=== PATIENT | male | born 1975 | race Caucasian/White ===

== ENCOUNTER 2017-12-20 14:25 | Emergency (ER) | payer BC ==
[2017-12-20] MEDS ORDERED: Ketorolac 60 MG/2 ML SDV IM ONE (14:46)
--- NOTE | 2017-12-20 14:46 | EDM.PDOC ---
ED HPI GENERAL MEDICAL PROBLEM - General Chief Complaint: Abdominal Pain Stated Complaint: LT SIDE HURTS Time Seen by Provider: 12/20/17 14:39 Source of Information: Reports: Patient History Limitations: Reports: No Limitations - History of Present Illness INITIAL COMMENTS - FREE TEXT/NARRATIVE: HISTORY AND PHYSICAL: History of present illness: Patient is a 42-year-old male who presents to the emergency room with complaints of left low rib pain. He states he was playing with his son when he got hit in the left low chest approximately 2 days ago. Complaining of pain which is increased with deep inspiration, coughing or movement. Denies any abdominal pain, nausea, vomiting, diarrhea or constipation. He has been eating and drinking appropriately without difficulty. Review of systems: As per history of present illness and below otherwise all systems reviewed and negative. Past medical history: As per history of present illness and as reviewed below otherwise noncontributory. Surgical history: As per history of present illness and as reviewed below otherwise noncontributory. Social history: No reported history of drug or alcohol abuse. Family history: As per history of present illness and as reviewed below otherwise noncontributory. Physical exam: General: Well-developed and well-nourished 42-year-old male. Alert and oriented. Nontoxic appearing and in no acute distress. HEENT: Atraumatic, normocephalic, pupils equal and reactive bilaterally, negative for conjunctival pallor or scleral icterus, mucous membranes moist, throat clear, neck supple, nontender, trachea midline. No drooling or trismus noted. No meningeal signs Lungs: Clear to auscultation, breath sounds equal bilaterally, chest and her to the left low anterior rib area. Breathes easy and even Heart: S1S2, regular rate and rhythm without overt murmur Abdomen: Soft, nondistended, nontender. Negative for masses or hepatosplenomegaly. Negative for costovertebral tenderness. Pelvis: Stable nontender. Genitourinary: Deferred. Rectal: Deferred. Skin: Intact, warm, dry. No lesions or rashes noted. Extremities: Atraumatic, negative for cords or calf pain. Neurovascular unremarkable. Neuro: Awake, alert, oriented. Cranial nerves II through XII unremarkable. Cerebellum unremarkable. Motor and sensory unremarkable throughout. Exam nonfocal. Notes: Xray is unremarkable, no pneumothorax or fractures. Supportive care measures were reviewed and discussed. Patient voices understanding and is agreeable to plan of care. He denies any further questions or concerns at this time. Diagnostics: Chest x-ray with rib detail Therapeutics: Toradol Prescription: Tramadol PRN (#20) Impression: Contusion Plan: 1. Rest and ice the affected area. 2. Tylenol and/or ibuprofen as needed for pain. Tramadol for moderate to severe pain. This medication may cause drowsiness a do not take it will driving her needing to be functioning outside of the house. 3. Follow-up with your primary care provider in the next 1-2 days. Return to the ED as needed and as discussed. Definitive disposition and diagnosis as appropriate pending reevaluation and review of above. Left Abdomen Pain Score (Numeric/FACES): 6 - Related Data Allergies Allergy/AdvReac Type Severity Reaction Status Date / Time No Known Allergies Allergy Verified 12/20/17 14:40 Home Meds: Home Meds Insulin Glargine,Hum.Rec.Anlog [Lantus Solostar] 30 units SQ BEDTIME 09/19/14 [ History] Insulin Aspart [NovoLOG] 100 unit SUBCUT TIDAC #0 09/21/14 [Rx] traMADol [Ultram] 50 mg PO Q4H PRN #20 tab 12/20/17 [Rx] Past Medical History - Past Health History Medical/Surgical History: Denies Medical/Surgical History Cardiovascular History: Reports: Heart Murmur Endocrine/Metabolic History: Reports: Diabetes, Type I - Past Surgical History Musculoskeletal Surgical History: Reports: Arthroscopic Knee Social & Family History - Family History Family Medical History: Noncontributory - Tobacco Use Smoking Status *Q: Current Every Day Smoker Years of Tobacco use: 16 Packs/Tins Daily: 1 - Caffeine Use Caffeine Use: Reports: Coffee - Recreational Drug Use Recreational Drug Use: No ED ROS GENERAL - Review of Systems Review Of Systems: ROS reveals no pertinent complaints other than HPI. ED EXAM, GI/ABD - Physical Exam Exam: See Below (See dictation) Course - Vital Signs Last Recorded V/S: Last Vital Signs Temp 98.1 F 12/20/17 14:38 Pulse 95 12/20/17 14:38 Resp 18 12/20/17 14:38 BP 117/68 12/20/17 14:38 Pulse Ox 96 12/20/17 14:38 - Orders/Labs/Meds Orders: Active Orders 24 hr Category Date Time Status Ribs 2V w Chest Lt [CR] Stat Exams 12/20/17 14:46 Taken Meds: Medications Discontinued Medications Generic Name Dose Route Start Last Admin Trade Name Freq PRN Reason Stop Dose Admin Ketorolac Tromethamine 60 mg 12/20/17 14:46 12/20/17 15:35 Toradol IM 12/20/17 14:47 60 mg ONETIME ONE Administration Departure - Departure Time of Disposition: 15:58 Disposition: Home, Self-Care 01 Clinical Impression: Contusion Qualifiers: Encounter type: initial encounter Contusion area: thoracic wall Contusion of thoracic wall detail: front wall of thorax Laterality: left Qualified Code(s): S20.212A - Contusion of left front wall of thorax, initial encounter - Discharge Information Prescriptions: traMADol [Ultram] 50 mg PO Q4H PRN #20 tab PRN Reason: Pain Instructions: Contusion, [id number]-[id number] Referrals: PCP,None [Primary Care Provider] - Forms: ED Department Discharge Additional Instructions: The following information is given to patients seen in the emergency department who are being discharged to home. This information is to outline your options for follow-up care. We provide all patients seen in our emergency department with a follow-up referral. The need for follow-up, as well as the timing and circumstances, are variable depending upon the specifics of your emergency department visit. If you don't have a primary care physician on staff, we will provide you with a referral. We always advise you to contact your personal physician following an emergency department visit to inform them of the circumstance of the visit and for follow-up with them and/or the need for any referrals to a consulting specialist. The emergency department will also refer you to a specialist when appropriate. This referral assures that you have the opportunity for follow-up care with a specialist. All of these measure are taken in an effort to provide you with optimal care, which includes your follow-up. Under all circumstances we always encourage you to contact your private physician who remains a resource for coordinating your care. When calling for follow-up care, please make the office aware that this follow-up is from your recent emergency room visit. If for any reason you are refused follow-up, please contact the [facility] Emergency Department at and asked to speak to the emergency department charge nurse. MARY Judd [facility] [address] [place] [id number] 1. Rest and ice the affected area. 2. Tylenol and/or ibuprofen as needed for pain. Tramadol for moderate to severe pain. This medication may cause drowsiness a do not take it will driving her needing to be functioning outside of the house. 3. Follow-up with your primary care provider in the next 1-2 days. Return to the ED as needed and as discussed. - My Orders Last 24 Hours: My Active Orders 12/20/17 14:46 Ribs 2V w Chest Lt [CR] Stat - Assessment/Plan Last 24 Hours: My Active Orders 12/20/17 14:46 Ribs 2V w Chest Lt [CR] Stat
[2017-12-20 15:34] VITALS: BP 117/68
--- NOTE | 2017-12-22 17:12 | CR ---
EXAM DATE: 12/20/17 PATIENT'S AGE: 42 Patient: SAAD EMERY Facility: [place], [place] Site . Site : 1975 Study: XRay Chest Left Ribs [id number]/[id number] 3:32:31 PM Ordering Physician: Doctor Good Final Report: INDICATION: Punched in lower left rib area. TECHNIQUE: Chest and left ribs 4 views. COMPARISON: None. FINDINGS: Cardiovascular and mediastinum: Heart size and vasculature are normal in caliber and appearance. Mediastinum is within normal limits. Lungs and pleural spaces: Lungs are clear. No sign of infiltrate or mass. No sign of pleural effusion. No pneumothorax. Bones and soft tissues: Detailed oblique images of the left ribs demonstrate no fractures or bone lesions. IMPRESSION: Unremarkable chest and left ribs. Dictated by Javier Moreira MD @ 12/20/2017 4:02:30 PM Dictated by: Javier Moreira MD @ 12/20/2017 16:02:35 (Electronic Signature) Report Signed by Proxy. OTILIO
== END 2017-12-20 16:10 | disposition home or self-care (01) ==
LOC: MW.ED 14:25
DX: S20.212A Contusion of left front wall of thorax, initial encounter (principal); W51.XXXA Accidental striking against or bumped into by another person, initial encounter; E10.9 Type 1 diabetes mellitus without complications; F17.210 Nicotine dependence, cigarettes, uncomplicated
CPT/HCPCS: 71101; 96372; 99283; J1885

== ENCOUNTER 2020-06-13 22:34 | Emergency (ER) | payer BC, OTHER | END 2020-06-13 22:45 | disposition left against medical advice (07) | LOC: MW.ED 22:34 | DX: Z53.21 Procedure and treatment not carried out due to patient leaving prior to being seen by health care provider (principal) ==

== ENCOUNTER 2020-09-13 06:32 | Day surgery (SDC) | payer OTHER ==
[~2020-09-13 06:32] MED LIST: Lactated Ringers 1,000 ML IV SCH
[2020-09-13] MEDS ORDERED: fentaNYL 100 MCG/2 ML SDV ONE (06:46)
[2020-09-13] MEDS ORDERED: Midazolam 1 MG/ML 2 ML SDV ONE (06:46)
[2020-09-13] MEDS ORDERED: Propofol 200 MG/20 ML SDV ONE ×2 (06:46→08:05)
[2020-09-13] MEDS ORDERED: Lidocaine 2% 5 ML SDV ONE (06:48)
--- NOTE | 2020-09-13 07:12 | PCM.PREANE ---
Preanesthetic Assessment - Anesthesia/Transfusion/Family Hx Anesthesia History: Prior Anesthesia Without Reaction Family History of Anesthesia Reaction: No Transfusion History: No Prior Transfusion(s) - Review of Systems General: No Symptoms Pulmonary: No Symptoms Cardiovascular: No Symptoms Gastrointestinal: No Symptoms Neurological: No Symptoms Other: Reports: None - Physical Assessment NPO Status Date: 09/13/20 NPO Status Time: 00:01 Height: 5 ft 11 in Weight: 194 lb ASA Class: 3 Mental Status: Alert & Oriented x3 Airway Class: Mallampati = 2 Dentition: Reports: Normal Dentition, Dentures ROM/Head Extension: Full Lungs: Clear to Auscultation, Normal Respiratory Effort Cardiovascular: Regular Rate, Regular Rhythm - Allergies Allergies/Adverse Reactions: Allergies Allergy/AdvReac Type Severity Reaction Status Date / Time No Known Allergies Allergy Verified 09/13/20 07:09 - Anesthesia Plan Pre-Op Medication Ordered: None - Acknowledgements Anesthesia Type Planned: General Anesthesia Pt an Appropriate Candidate for the Planned Anesthesia: Yes Alternatives and Risks of Anesthesia Discussed w Pt/Guardian: Yes Pt/Guardian Understands and Agrees with Anesthesia Plan: Yes Additional Comments: npo IDDM glu 151 RLS tob quit 2019 etoh daily glass of wine no cv problems par no questions anxiety PreAnesthesia Questionnaire - Past Health History Medical/Surgical History: Denies Medical/Surgical History HEENT History: Reports: Other (See Below) Other HEENT History: uses reading glasses, has upper denture Cardiovascular History: Reports: None Respiratory History: Reports: None Gastrointestinal History: Reports: Hemorrhoids Genitourinary History: Reports: Renal Calculus Other Genitourinary History: hx of passing a kidney stone Musculoskeletal History: Reports: Fracture Other Musculoskeletal History: hx of fx finger and right tibia Neurological History: Reports: Concussion, Neuropathy, Diabetic, Vertigo Psychiatric History: Reports: None Endocrine/Metabolic History: Reports: IDDM Hematologic History: Reports: None Immunologic History: Reports: None Oncologic (Cancer) History: Reports: None Dermatologic History: Reports: None - Past Surgical History Head Surgeries/Procedures: Reports: None HEENT Surgical History: Reports: None Cardiovascular Surgical History: Reports: None Respiratory Surgical History: Reports: None GI Surgical History: Reports: Other (See Below) Other GI Surgeries/Procedures: hemorrhoidectomy Male Surgical History: Reports: None Endocrine Surgical History: Reports: None Neurological Surgical History: Reports: None Musculoskeletal Surgical History: Reports: Other (See Below) Other Musculoskeletal Surgeries/Procedures:: hx of ORIF right tibia- hardware later removed Oncologic Surgical History: Reports: None Dermatological Surgical History: Reports: None - SUBSTANCE USE Tobacco Use Status *Q: Former Tobacco User Tobacco Use Within Last Twelve Months: No Recreational Drug Use History: No - HOME MEDS Home Medications: Home Meds Insulin Glargine,Hum.Rec.Anlog [Lantus Solostar] 40 units SQ BEDTIME 09/19/14 [History] Gabapentin [Neurontin] 1 tab PO BEDTIME 09/07/20 [History] Insulin Regular, Human [NovoLIN R] 5 unit SQ QID 09/07/20 [History] - CURRENT (IN HOUSE) MEDS Current Meds: Current Medications Lactated Ringer's (Ringers, Lactated) 1,000 mls @ 125 mls/hr IV ASDIRECTED [facility] Last Admin: 09/13/20 07:08 Dose: 125 mls/hr Documented by: Discontinued Medications Fentanyl (Fentanyl 100 Mcg/2 Ml Sdv) Confirm Administered Dose 100 mcg .ROUTE .STK-MED ONE Stop: 09/13/20 06:47 Lidocaine (Lidocaine 2% 5 Ml Sdv) Confirm Administered Dose 5 ml .ROUTE .STK-MED ONE Stop: 09/13/20 06:49 Midazolam HCl (Midazolam 1 Mg/Ml 2 Ml Sdv) Confirm Administered Dose 2 mg .ROUTE .STK-MED ONE Stop: 09/13/20 06:47 Propofol (Propofol 200 Mg/20 Ml Sdv) Confirm Administered Dose 200 mg .ROUTE .STK-MED ONE Stop: 09/13/20 06:47
--- NOTE | 2020-09-13 08:27 | PCM.OPNOTE ---
- General Post-Op/Procedure Note Date of Surgery/Procedure: 09/13/20 Operative Procedure(s): colonoscopy Findings: Hemorrhoids dictation number [id number] Pre Op Diagnosis: blood in stool Post-Op Diagnosis: Hemorrhoids Primary Surgeon: Thad Sloan Pathology: none Complications: None Condition: Good
[2020-09-13 08:36] VITALS: BP 103/68; PULSE 75
--- NOTE | 2020-09-13 09:01 | PCM.POSTAN ---
POST ANESTHESIA ASSESSMENT - MENTAL STATUS Mental Status: Alert (NO ANESTHETIC PROBLEMS), Oriented - VITAL SIGNS Vital Signs: Last Vital Signs Temp 97.9 F 09/13/20 07:11 Pulse 75 09/13/20 08:35 Resp 13 09/13/20 08:35 BP 103/68 09/13/20 08:35 Pulse Ox 99 09/13/20 08:35 - RESPIRATORY Respiratory Status: Respiratory Rate WNL, Airway Patent, O2 Saturation Stable - CARDIOVASCULAR CV Status: Pulse Rate WNL, Blood Pressure Stable - GASTROINTESTINAL GI Status: No Symptoms - POST OP HYDRATION Hydration Status: Adequate & Stable
--- NOTE | 2020-09-13 09:02 | PCM48HPAN ---
Post Anesthesia Note - EVALUATION WITHIN 48HRS OF ANESTHETIC Vital Signs in Normal Range: Yes Patient Participated in Evaluation: Yes Respiratory Function Stable: Yes Airway Patent: Yes Cardiovascular Function Stable: Yes Hydration Status Stable: Yes Pain Control Satisfactory: Yes Nausea and Vomiting Control Satisfactory: Yes Mental Status Recovered: Yes Vital Signs: Last Vital Signs Temp 97.9 F 09/13/20 07:11 Pulse 75 09/13/20 08:35 Resp 13 09/13/20 08:35 BP 103/68 09/13/20 08:35 Pulse Ox 99 09/13/20 08:35
--- NOTE | 2020-09-13 18:39 | OR ---
SURGEON: SUZIE RYAN MD DATE OF PROCEDURE: 09/13/2020 PREOPERATIVE DIAGNOSIS: Hemorrhoids. POSTOPERATIVE DIAGNOSIS: Hemorrhoids. PROCEDURE PERFORMED: Colonoscopy. PRIMARY SURGEON: Endoscopist: Suzie Ryan MD ANESTHESIA: With anesthesiology. EXTENT OF COLONOSCOPY: To cecum. BOWEL PREP: Marginal in the cecum and ascending colon. LIMITATIONS: The patient had a marginal bowel prep in the cecum and ascending colon, thus spent quite a bit of time suctioning and irrigating out and missed a very small polyp. REASON FOR PROCEDURE: The patient is a pleasant 44-year-old gentleman. He had a history of thrombosed hemorrhoids in the past. He now has hemorrhoids and would like to have a fix. Patient does have blood in his stool about three times per week. He has never had a colonoscopy before. PROCEDURE IN DETAIL: Physical exam was performed. Major risks and benefits associated with procedure were explained in detail to the patient. The patient verbalized understanding and is in agreement of the same. The patient was connected to the appropriate monitoring devices and IV was started. EKG, pulse oximetry, blood pressure, and capnography were monitored throughout the procedure. Continuous oxygen and sedation were provided by the anesthesiologist. Patient was placed in left lateral decubitus position. Sedation began. After adequate sedation was achieved, a digital rectal exam was performed. No rectal masses or polyps were felt other than hemorrhoids. Now, a well-lubricated Olympus colonoscope was inserted into the rectum and advanced under direct visualization to the cecum. Cecum was identified by both visual and anatomic landmarks. The patient did have a quite a bit of liquid stool in the cecum and in the ascending colon. Thus we spent quite a bit of time suctioning and irrigating this out for a fairly good look at the cecum, ascending colon, although a very small polyp could be missed. The scope was then slowly withdrawn in a somewhat circular fashion looking at the color, texture, anatomy, and integrity of mucosa from the cecum to the anal canal. No polyps were seen. The scope was retroflexed in the rectum. Again, he did have some noninflamed internal hemorrhoids. Scope was completely removed. The procedure was terminated. ENDOSCOPIC DIAGNOSIS: . RECOMMENDATION: Followup colonoscopy within 5 years, sooner if he develops signs and symptoms such as change in bowel habits or blood in stool. The patient will follow up in clinic to go over scheduling for elective hemorrhoidectomy. VALENTINE RAMSAY /[id number]
== END 2020-09-13 09:10 | disposition home or self-care (01) ==
LOC: MW.SDS 06:32
PROVIDERS: ATTEND Surgery
DX: K64.8 Other hemorrhoids (principal); E10.9 Type 1 diabetes mellitus without complications; E78.5 Hyperlipidemia, unspecified; Z87.891 Personal history of nicotine dependence
CPT/HCPCS: 45378; J2250; J2704; J3010; J7120

== ENCOUNTER 2022-10-14 06:53 | Day surgery (SDC) | payer BC ==
[~2022-10-14 06:53] MED LIST changes: +Acetaminophen 1,000 MG in Premix Bag 1 BAG IV SCH; +Albuterol 0.083% 2.5 MG/3 ML Neb Soln NEB PRN; +HYDROmorphone 1 MG/ML Syringe IVPUSH PRN; +Metoclopramide 10 MG/2 ML SDV IVPUSH PRN; +Morphine 2 MG/ML SYRINGE IVPUSH PRN; +Naloxone 0.4 MG/ML SDV IVPUSH PRN; +Ondansetron 4 MG/2 ML SDV IVPUSH PRN; +Pregabalin 75 MG Cap PO SCH; +cefOXitin 2 GM in Sodium Chloride 0.9% 50 ML IV SCH; +droPERidol 5 MG/2 ML SDV IVPUSH PRN; +fentaNYL 50 MCG/ML SDV IVPUSH PRN
[2022-10-14] MEDS ORDERED: Chloroprocaine 10 MG/ML 5 ML Amp ONE (07:33)
[2022-10-14] MEDS ORDERED: Bupivacaine 25%/EPINEPHrine/PF 30 ML ONE (07:36)
[2022-10-14] MEDS ORDERED: Lidocaine 2% 11 ML Jelly Filled Syringe ONE (07:37)
[2022-10-14] MEDS ORDERED: 50% Dextrose in Water 50 ML Syringe ONE (08:00)
[2022-10-14] MEDS ORDERED: propofoL 50 ML ONE ×2 (08:10→08:52)
[2022-10-14] MEDS ORDERED: cefOXitin 1 GM Vial ONE (08:31)
[2022-10-14] MEDS ORDERED: Phenylephrine HCl 0.5 MG/5 ML AMP ONE (08:41)
[2022-10-14 13:46] VITALS: BP 108/64; PULSE 71
== END 2022-10-14 12:08 | disposition home or self-care (01) ==
LOC: MW.SDS 06:53
PROVIDERS: ATTEND Surgery
DX: K64.8 Other hemorrhoids (principal); K64.4 Residual hemorrhoidal skin tags; F41.9 Anxiety disorder, unspecified; E78.5 Hyperlipidemia, unspecified; E10.40 Type 1 diabetes mellitus with diabetic neuropathy, unspecified; G25.81 Restless legs syndrome; Z79.4 Long term (current) use of insulin; Z79.899 Other long term (current) drug therapy; Z87.891 Personal history of nicotine dependence
CPT/HCPCS: 46260; A9270; J0694; J2370; J2401; J2704; J7120; 00902; J3490

== ENCOUNTER 2024-02-26 13:21 | Emergency (ER) | payer BC ==
[2024-02-26 14:09] LABS: BASOPHILS ABSOLUTE AUTO 0.04 K/uL (0.00-0.20); BASOPHILS PERCENT AUTO 0.5 % (0.0-1.0); EOSINOPHILS ABSOLUTE AUTO 0.09 K/uL (0.00-0.45); EOSINOPHILS PERCENT AUTO 1.1 % (0.0-6.0); HEMATOCRIT 47.3 % (42.0-52.0); HEMOGLOBIN 16.5 g/dL (14.0-18.0); IMMATURE GRAN ABSOLUTE AUTO 0.04 K/uL (0.00-0.05); IMMATURE GRAN PERCENT AUTO 0.5 % (0.0-0.4); LYMPHOCYTES ABSOLUTE AUTO 1.84 K/uL (1.00-4.80); MEAN CORPUSCULAR HEMOGLOBIN 30.6 pg (28.0-32.0); MEAN CORPUSCULAR HGB CONC 34.9 g/dL (32.0-36.0); MEAN CORPUSCULAR VOLUME 87.8 fL (83.0-99.0); MEAN PLATELET VOLUME 7.6 fL (9.4-12.4); MONOCYTES ABSOLUTE AUTO 0.58 K/uL (0.00-0.80); MONOCYTES PERCENT AUTO 7.3 % (0.0-8.0); NEUTROPHILS ABSOLUTE AUTO 5.41 K/uL (1.80-7.70); NEUTROPHILS PERCENT AUTO 67.6 % (41.0-71.0); PLATELET COUNT,PLT 381 K/uL (150-400); RED BLOOD CELL COUNT 5.39 M/uL (4.52-5.90)
[2024-02-26 14:56] LABS: A/G RATIO 1.3 (0.9-1.6); BILIRUBIN TOTAL 0.7 mg/dL (0.2-1.0); CARBON DIOXIDE,CO2 24.1 mmol/L (21.0-32.0); CREATININE 1.5 mg/dL (0.8-1.3); EST CRCL DRUG DOSING (CG) 65.54 mL/min; POTASSIUM,K 4.2 mmol/L (3.5-5.1); PROTEIN TOTAL,TP 7.2 g/dL (6.4-8.2)
[2024-02-26 14:56] LABS: MAGNESIUM 1.8 mg/dL (1.8-2.4)
[2024-02-26 15:30] VITALS: BP 137/62; PULSE 85
== END 2024-02-26 15:30 | disposition home or self-care (01) ==
LOC: MW.ED 13:21
DX: R07.9 Chest pain, unspecified (principal); E11.40 Type 2 diabetes mellitus with diabetic neuropathy, unspecified; Z79.4 Long term (current) use of insulin; Z79.899 Other long term (current) drug therapy; Z75.8 Other problems related to medical facilities and other health care
CPT/HCPCS: 36415; 71046; 71046-26; 80053; 83690; 83735; 84484; 85025; 93005; 93010; 99282; 99285